=== PATIENT | female | born 2000 | race Caucasian/White ===

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

== ENCOUNTER → 2022-06-18 | Outpatient (CLI) | payer OTHER ==
[2022-06-18 18:57] LABS: BASOPHILS ABSOLUTE AUTO 0.07 K/mm3 (0.00-0.23); BASOPHILS PERCENT AUTO 1 % (0-2); EOSINOPHILS ABSOLUTE AUTO 0.04 K/mm3 (0.00-0.68); EOSINOPHILS PERCENT AUTO 1 % (0-6); Hematocrit 36.2 % (33.0-51.0); Hemoglobin 12.1 g/dL (11.5-16.0); IMMATURE GRAN ABSOLUTE AUTO 0.01 K/mm3 (0.00-0.10); IMMATURE GRAN PERCENT AUTO 0 % (0-1); LYMPHOCYTES ABSOLUTE AUTO 1.87 K/mm3 (0.84-5.20); LYMPHOCYTES PERCENT AUTO 30 % (21-46); MONOCYTES ABSOLUTE AUTO 0.42 K/mm3 (0.16-1.47); MONOCYTES PERCENT AUTO 7 % (4-13); Mean Corpuscular HGB Conc 33.4 g/dL (31.5-36.5); Mean Corpuscular Volume 87 fL (80-100); Mean Platelet Volume 11.9 fL (9.1-12.4); NEUTROPHILS ABSOLUTE AUTO 3.76 K/mm3 (1.96-9.15); NEUTROPHILS PERCENT AUTO 61 % (41-73); Platelet Count 209 K/mm3 (150-400); RDW Coefficient Variation 11.9 % (11.7-14.2); RDW Standard Deviation 38.2 fL (35.1-46.3); Red Blood Cell Count 4.17 M/mm3 (3.80-5.20); White Blood Cell Count 6.17 K/mm3 (4.00-11.30)
[2022-06-18 19:05] LABS: Appearance, Urine Clear (Clear); Bilirubin, Urine Neg (Neg); Blood, Urine Neg (Neg); Color, Urine Yellow (P-Yellow); Glucose Qualitative, Urine Neg (Neg); Ketones, Urine Neg (Neg); Leukocyte Esterase, Urine Neg (Neg); Nitrite, Urine Neg (Neg); Protein, Urine Neg (Neg); Specific Gravity, Urine 1.015 (1.003-1.022); Urobilinogen, Urine NORM (Normal)
[2022-06-19 07:09] LABS: HBSAG SCREEN Negative (Negative)
== END | disposition home or self-care (01) ==
LOC: LAB SHORT 15:20 → LAB 15:20
PROVIDERS: Registered Nurse Community Health
DX: Z34.91 Encounter for supervision of normal pregnancy, unspecified, first trimester (principal)
CPT/HCPCS: 80055; 81003; 87086

== ENCOUNTER → 2022-07-17 | Outpatient (CLI) | payer OTHER ==
[2022-07-20 04:10] LABS: CHLAMYDIA TRACHOMATIS, NAA Negative (Negative)
== END | disposition home or self-care (01) ==
LOC: LAB SHORT 14:40
PROVIDERS: Registered Nurse Community Health
DX: Z36.89 Encounter for other specified antenatal screening (principal)
CPT/HCPCS: 87491; 87591; G0123

== ENCOUNTER → 2022-08-21 | Outpatient (CLI) | payer OTHER ==
[2022-08-22 08:09] LABS: HIV AB/P24 AG SCREEN Non Reactive (Non Reactive)
== END | disposition home or self-care (01) ==
LOC: LAB SHORT 15:55
PROVIDERS: Registered Nurse Community Health
DX: Z34.01 Encounter for supervision of normal first pregnancy, first trimester (principal)
CPT/HCPCS: 84443; 87389

== ENCOUNTER → 2022-11-25 | Outpatient (CLI) | payer OTHER ==
[2022-11-25 14:49] LABS: Hematocrit 32.5 % (33.0-51.0)
== END | disposition home or self-care (01) ==
LOC: LAB 12:42 → LAB SHORT 12:42
PROVIDERS: Registered Nurse Community Health
DX: Z34.01 Encounter for supervision of normal first pregnancy, first trimester (principal)
CPT/HCPCS: 82950; 85014; 85018

== ENCOUNTER → 2023-01-22 | Outpatient (CLI) | payer OTHER | END | disposition home or self-care (01) | LOC: LAB 12:31 → LAB SHORT 12:31 | DX: Z34.03 Encounter for supervision of normal first pregnancy, third trimester (principal) | CPT/HCPCS: 87081; 87150 ==

== ENCOUNTER 2023-02-12 20:50 | Observation (INO) | payer OTHER ==
[~2023-02-12] VITALS: Ht 157.5 cm; Wt 85.9 kg
[2023-02-12 21:16] VITALS: BP 113/72
[2023-02-13 00:25] VITALS: BP 101/53
[2023-02-13] MEDS ORDERED: ASPI81CH PO (02:43)
[2023-02-13] MEDS ORDERED: PRENATAL TABLE1 EAC2 PO (02:43)
[2023-02-13 02:56] VITALS: BP 110/56
[2023-02-13 07:26] VITALS: BP 95/57
--- NOTE | 2023-02-13 07:29 | NUR ---
0730 ASSUMED CARE OF PATIENT RESTING AT PRESENT. DISCUSSED WITH PATIENT AND S/O THAT THIS IS A NON SMOKING FACILITY, NO SMOKING INDOORS AND DON'T BRING LIGHTERS OR MATCHES OR OTHER IGNITION SOURCES ONTO UNIT. PATIENT AND S/O VERBALIZE UNDERSTANDING
[2023-02-13 09:47] VITALS: BP 100/63
== END 2023-02-13 11:14 | disposition home or self-care (01) ==
LOC: OBS 20:50 → BC 20:51 → OBS 20:53 → BC 20:53 → OBS 02-13 02:28 → BC 02-13 02:28 → OBS 02-13 02:29 → BC 02-13 11:14
PROVIDERS: ADMIT Advanced Practice Midwife
DX: O36.8330 Maternal care for abnormalities of the fetal heart rate or rhythm, third trimester, not applicable or unspecified (principal); O99.341 Other mental disorders complicating pregnancy, first trimester; F32.9 Major depressive disorder, single episode, unspecified; F41.9 Anxiety disorder, unspecified; Z3A.39 39 weeks gestation of pregnancy
CPT/HCPCS: 81003; A9270; G0378; J7120

== ENCOUNTER 2023-06-04 06:46 | Day surgery (SDC) | payer OTHER ==
[~2023-06-04] VITALS: Ht 154.9 cm; Wt 65.4 kg
[~2023-06-04 06:46] MED LIST changes: +ASPI81CH PO; +PRENATAL TABLE1 EAC2 PO
[2023-06-04 09:34] VITALS: BP 102/65
--- NOTE | 2023-06-04 10:30 | NUR ---
06/04/23 1030 Yany Sullivan IV REMOVED IN TACT. PT TOLERATED WELL.
== END 2023-06-04 10:30 | disposition home or self-care (01) ==
LOC: ORSCSDS 06:46
PROVIDERS: Obstetrics & Gynecology
PROC: 0UT74ZZ Resection of Bilateral Fallopian Tubes, Percutaneous Endoscopic Approach (ICD-10-PCS; principal; 2023-06-04 08:00)
DX: Z30.2 Encounter for sterilization (principal); N83.8 Other noninflammatory disorders of ovary, fallopian tube and broad ligament
CPT/HCPCS: 88302; J0690; J1100; J1885; J2405; J2704; J3010; J7120